=== PATIENT | female | born 1950 | race Caucasian/White ===

== ENCOUNTER 2017-11-15 21:27 | Observation (INO) ==
[2017-11-16 02:13] LABS: Basophils % 0.3 % (0.0-0.8); Eosinophils # 0.1 10*3/uL (0.0-0.87); Eosinophils % 1.4 % (0.00-10.9); Hematocrit 46.4 VOL% (35.7-47.0); Hemoglobin 15.3 GM/DL (12.0-16.0); Immature Granulocytes % 0.2 %; Immature Granulocytes Absolute 0.01 #; Lymphocytes # 2.4 10*3/uL (1.4-4.0); Lymphocytes % 36.7 % (21.3-54.2); Mean Corpuscular Hemoglobin 31 PG (27-34); Mean Corpuscular Volume 92.8 FL (87-102); Mean Platelet Volume 11.7 FL (9.6-12.0); Monocytes # 0.6 10*3/uL (0.11-0.8); Monocytes % 8.7 % (1.7-12.7); Neutrophils # 3.5 10*3/uL (1.4-7.4); Neutrophils % 52.7 % (38.7-73.9); Platelet Count 249 T/CUMM (130-400); Red Cell Distribution Width 12.8 % (9.3-17.3); White Blood Count 6.5 T/CUMM (4-12)
[2017-11-16] MEDS ORDERED: KETOROLAC 30 MG/1 ML VIAL IV STA (02:18)
[2017-11-16] MEDS ORDERED: KETOROLAC 30 MG/1 ML VIAL ONE (02:27)
[2017-11-16 02:29] LABS: Alanine Aminotransferase 32 U/L (13-56); Albumin 4.1 G/DL (3.4-5.0); Alkaline Phosphatase 82 U/L (45-117); Aspartate Amino Transferase 18 U/L (0-37); Blood Urea Nitrogen 15 MG/DL (7-18); Calcium 9.6 MG/DL (8.5-10.1); Glucose 127 MG/DL (74-106); Osmolality,Calculated 285.1 MOS/KG (273-304); Potassium 3.6 MMOL/L (3.5-5.1); Sodium 142 MMOL/L (136-145); Total Protein 7.6 G/DL (6.4-8.3); Troponin I Only < 0.015 NG/ML (0.00-0.045)
[2017-11-16 03:21] LABS: Barbiturates Screen,Urine Negative (Negative); Benzodiazepines Screen,Urine Negative (Negative); Cannabinoid Screen,Urine Negative (Negative); Opiate Screen,Urine Negative (Negative); Phencyclidine Screen,Urine Negative (Negative)
[2017-11-16] MEDS ORDERED: ACETAMINOPHEN 325 MG TABLET PO PRN (04:37)
[2017-11-16] MEDS ORDERED: ONDANSETRON 4 MG/2 ML VIAL IV PRN (04:37)
[2017-11-16] MEDS ORDERED: hydrALAZINE 20 MG/1 ML VIAL IV PRN (04:41)
[2017-11-16 06:16] LABS: Risk Ratio 5.86
[2017-11-16] MEDS: ENOXAPARIN 40 MG/0.4 ML SYRINGE SUBCUT SCH (09:45)
[2017-11-16] MEDS: PANTOPRAZOLE 40 MG TABLET PO SCH (09:45)
[2017-11-16] MEDS: ASPIRIN EC 81 MG TABLET PO SCH (09:45)
[2017-11-16] MEDS: NICOTINE 21 MG/24 HR PATCH TRANSDERM SCH (13:19)
[2017-11-16] MEDS ORDERED: DEXTROSE 50% 25 GM/50 ML VIAL IV PRN (13:48)
[2017-11-16] MEDS ORDERED: GLUCAGON 1 MG VIAL IM PRN (13:48)
[2017-11-16] MEDS: INSULIN LISPRO 100 UNIT/ML SUBCUT SCH (17:38)
[2017-11-17] MEDS: INSULIN LISPRO 100 UNIT/ML SUBCUT SCH ×3 (00:08→13:12)
[2017-11-17 05:13] LABS: Basophils % 0.5 % (0.0-0.8); Eosinophils # 0.1 10*3/uL (0.0-0.87); Eosinophils % 1.7 % (0.00-10.9); Hematocrit 41.4 VOL% (35.7-47.0); Immature Granulocytes % 0.2 %; Immature Granulocytes Absolute 0.01 #; Lymphocytes # 1.8 10*3/uL (1.4-4.0); Lymphocytes % 42.7 % (21.3-54.2); Mean Corpuscular HGB Conc 33.8 GM/DL (32-36); Mean Corpuscular Hemoglobin 31 PG (27-34); Monocytes # 0.4 10*3/uL (0.11-0.8); Monocytes % 10.1 % (1.7-12.7); Neutrophils # 1.9 10*3/uL (1.4-7.4); Neutrophils % 44.8 % (38.7-73.9); Platelet Count 184 T/CUMM (130-400); Red Cell Distribution Width 12.6 % (9.3-17.3); White Blood Count 4.2 T/CUMM (4-12)
[2017-11-17 05:44] LABS: Calcium 8.4 MG/DL (8.5-10.1); Osmolality,Calculated 284.1 MOS/KG (273-304); Potassium 3.7 MMOL/L (3.5-5.1)
[2017-11-17] MEDS: PANTOPRAZOLE 40 MG TABLET PO SCH (09:11)
[2017-11-17] MEDS: ENOXAPARIN 40 MG/0.4 ML SYRINGE SUBCUT SCH (09:11)
[2017-11-17] MEDS: ASPIRIN EC 81 MG TABLET PO SCH (09:11)
[2017-11-17] MEDS: NICOTINE 21 MG/24 HR PATCH TRANSDERM SCH (09:19)
[2017-11-17 16:28] VITALS: BP 148/97
== END 2017-11-17 16:06 | disposition home or self-care (01) ==
LOC: N.EDINP 21:27 → N.ED 21:27 → SUATTDRO 11-16 03:32 → N.TELEN 11-16 04:17
PROVIDERS: ADMIT Internal Medicine; ATTEND Internal Medicine

== ENCOUNTER 2017-11-25 16:42 | Observation (INO) ==
[2017-11-25] MEDS ORDERED: ONDANSETRON 4 MG/2 ML VIAL IV PRN (16:51)
[2017-11-25] MEDS ORDERED: ACETAMINOPHEN 325 MG TABLET PO PRN (16:51)
[2017-11-25] MEDS ORDERED: MAGNESIUM SULF RIDER 4 GM in PREMIX 1 EACH IV PRN (16:51)
[2017-11-25] MEDS ORDERED: ZALEPLON 5 MG CAPSULE PO PRN (16:51)
[2017-11-25] MEDS ORDERED: MAGNESIUM SULF RIDER 2 GM in PREMIX 1 EACH IV PRN ×2 (16:51→16:56)
[2017-11-25] MEDS ORDERED: BISACODYL 5 MG TABLET PO PRN (16:51)
[2017-11-25] MEDS ORDERED: guaiFENesin/DM ER 600-30 MG TABLET PO PRN (16:51)
[2017-11-25] MEDS ORDERED: POTASSIUM CHLORIDE RIDER 10 MEQ in PREMIX 1 EACH IV PRN (16:56)
[2017-11-25] MEDS ORDERED: ENOXAPARIN 40 MG/0.4 ML SYRINGE SUBCUT SCH (17:00)
[2017-11-25 18:31] LABS: INR 0.9; PT Patient Result 9.4 SECS
[2017-11-25] MEDS: ASPIRIN EC 81 MG TABLET PO SCH (18:32)
[2017-11-25] MEDS: METOPROLOL TARTRATE 25 MG TABLET PO SCH (18:33)
[2017-11-25 18:39] LABS: Albumin 4.4 G/DL (3.4-5.0); Bilirubin,Total 0.5 MG/DL (0.2-1.0); Calcium 9.2 MG/DL (8.5-10.1); Osmolality,Calculated 285.1 MOS/KG (273-304); Potassium 3.4 MMOL/L (3.5-5.1); Total Protein 8.2 G/DL (6.4-8.3)
[2017-11-25 19:18] LABS: Apearance,Urine CLEAR (Clear); Bacteria,Urine Occasional /HPF (Few); Bilirubin,Urine Negative (Negative); Blood, Urine Small mg/dL (Negative); Glucose,Urine (UA) Negative (Negative); Ketones,Urine Negative (Negative); Nitrite,Urine Negative (Negative); Protein,Urine Negative; RBC,Urine 1 /HPF (0-4); Squamous Epithelial Cell,Urine Occasional /HPF (0-10); Urine Color Straw (Yellow); Urine Specific Gravity 1.006 (1.001-1.035); Urine Urobilinogen < 2.0 EU/DL (0.2-1.0); WBC,Urine <1 /HPF (0-6)
[2017-11-25] MEDS ORDERED: ROSUVASTATIN 20 MG TABLET PO SCH (21:00)
[2017-11-25] MEDS: POTASSIUM CHLORIDE 20 MEQ TABLET PO PRN (21:13)
[2017-11-25 21:15] LABS: Troponin I Only < 0.015 NG/ML (0.00-0.045)
[2017-11-25] MEDS: SODIUM CHLORIDE 0.9% 1,000 ML IV SCH (22:20)
[2017-11-26] MEDS: POTASSIUM CHLORIDE 20 MEQ TABLET PO PRN ×2 (01:45)
[2017-11-26] MEDS: METOPROLOL TARTRATE 25 MG TABLET PO SCH ×2 (02:32→06:18)
[2017-11-26 04:40] LABS: Basophils % 0.5 % (0.0-0.8); Eosinophils # 0.1 10*3/uL (0.0-0.87); Eosinophils % 1.6 % (0.00-10.9); Hematocrit 41.7 VOL% (35.7-47.0); Hemoglobin 13.4 GM/DL (12.0-16.0); Immature Granulocytes % 0.4 %; Immature Granulocytes Absolute 0.02 #; Lymphocytes # 2.2 10*3/uL (1.4-4.0); Lymphocytes % 38.8 % (21.3-54.2); Mean Corpuscular HGB Conc 32.1 GM/DL (32-36); Mean Corpuscular Hemoglobin 30 PG (27-34); Mean Corpuscular Volume 93.9 FL (87-102); Mean Platelet Volume 11.1 FL (9.6-12.0); Monocytes # 0.5 10*3/uL (0.11-0.8); Monocytes % 9.3 % (1.7-12.7); Neutrophils # 2.8 10*3/uL (1.4-7.4); Neutrophils % 49.4 % (38.7-73.9); Platelet Count 222 T/CUMM (130-400); Red Blood Count 4.44 MC/CUMM (3.8-5.5); Red Cell Distribution Width 12.4 % (9.3-17.3); White Blood Count 5.6 T/CUMM (4-12)
[2017-11-26 05:12] LABS: Troponin I Only < 0.015 NG/ML (0.00-0.045)
[2017-11-26 05:22] LABS: Calcium 8.7 MG/DL (8.5-10.1); Potassium 4.4 MMOL/L (3.5-5.1); Risk Ratio 6.04
[2017-11-26] MEDS: PANTOPRAZOLE 40 MG TABLET PO SCH ×2 (07:01→09:26)
[2017-11-26] MEDS: ASPIRIN EC 81 MG TABLET PO SCH (07:02)
[2017-11-26] MEDS: SODIUM CHLORIDE 0.9% 1,000 ML IV SCH (07:11)
[2017-11-26] MEDS ORDERED: MIDAZOLAM 2 MG/2 ML VIAL ONE (07:29)
[2017-11-26] MEDS ORDERED: fentaNYL 100 MCG/2 ML VIAL ONE (07:29)
[2017-11-26] MEDS ORDERED: LIDOCAINE 1% 20 ML VIAL ONE (07:29)
[2017-11-26] MEDS ORDERED: NITROGLYCERIN DRIP 50 MG/250 ML BOTTLE IV ONE (07:29)
[2017-11-26] MEDS ORDERED: HEPARIN/NACL 0.9% 2 UNITS/ML 1,000 ML IV ONE (07:29)
[2017-11-26] MEDS ORDERED: VERAPAMIL 5 MG/2 ML VIAL ONE (07:29)
[2017-11-26] MEDS ORDERED: DIAZEPAM 5 MG TABLET PO ONE (07:30)
[2017-11-26] MEDS ORDERED: diphenhydrAMINE CAP 25 MG CAPSULE PO ONE (07:30)
[2017-11-26 09:44] LABS: Troponin I Only < 0.015 NG/ML (0.00-0.045)
[2017-11-26 14:00] VITALS: BP 102/52
[2017-11-27] MEDS ORDERED: METOPROLOL SUCCINATE XL 50 MG TABLET PO SCH (09:00)
== END 2017-11-26 16:45 | disposition home or self-care (01) ==
LOC: N.TELES
PROVIDERS: ADMIT Internal Medicine Cardiovascular Disease; ATTEND Internal Medicine Cardiovascular Disease
PROC: CLCCHCL (ICD-10-PCS; 2017-11-26 08:15)